=== PATIENT | female | born 1980 | race Hispanic/Latino ===

== ENCOUNTER 2017-08-08 21:16 | Emergency (ER) | payer BC ==
[2017-08-08 21:24] VITALS: BMI 22.3
[2017-08-08 21:32] VITALS: RESP 17
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
[2017-08-08] MEDS ORDERED: Oxycodone/Acetaminophen 5/325 mg Tab PO STA (22:37)
[2017-08-09 01:38] VITALS: O2SAT 98
[2017-08-09 02:19] VITALS: BP 115/72; PULSE 72; TEMP 98.2
--- NOTE | 2017-08-09 08:19 | CT ---
PROCEDURE: HISTORY: pain COMPARISON: none TECHNIQUE: FINDINGS: No fracture dislocation. No soft tissue mass. No effusion. IMPRESSION: Normal exam.
--- NOTE | 2017-08-09 08:25 | CT ---
PROCEDURE: CT of the Left Hip. HISTORY: pain COMPARISON: None available. TECHNIQUE: Contiguous axial images of the left hip were obtained. Coronal and sagittal reformats were generated. This CT exam was performed using one or more of the following dose reduction techniques: Automated exposure control, adjustment of the mA and/or kV according to patient size, and/or use of iterative reconstruction technique. FINDINGS: BONES: Unremarkable. No fracture or focal lesion. Femoral head maintains normal contour. LEFT HIP JOINT: Unremarkable. No dislocation. No degenerative changes. SOFT TISSUES: Unremarkable. IMPRESSION: Unremarkable CT of the left hip.
--- NOTE | 2017-08-09 08:58 | RAD ---
PROCEDURE: Left Ankle Radiographs. HISTORY: pain COMPARISON: None FINDINGS: BONES: No acute fracture or destructive bony lesion identified. JOINTS: Normal. No osteoarthritis. Ankle mortise maintained. Talar dome intact SOFT TISSUES: Normal. OTHER FINDINGS: None. IMPRESSION: Unremarkable left ankle radiographs.
--- NOTE | 2017-08-09 09:00 | RAD ---
PROCEDURE: Radiographs of the Lumbar Spine. HISTORY: pain COMPARISON: No prior. FINDINGS: BONES: Normal alignment. No listhesis. No fracture. DISC SPACES: Unremarkable. OTHER FINDINGS: None. IMPRESSION: Unremarkable radiographs of the lumbar spine.
--- NOTE | 2017-08-09 09:00 | RAD ---
PROCEDURE: Left Knee Radiographs. HISTORY: Pain. COMPARISON: None. FINDINGS: BONES: No acute fracture or destructive bony lesion identified. JOINTS: Normal. No osteoarthritis. JOINT EFFUSION: None. OTHER FINDINGS: None. IMPRESSION: Normal radiographs of the left knee.
--- NOTE | 2017-08-09 09:00 | RAD ---
PROCEDURE: LEFT HIP WITH PELVIS RADIOGRAPHS HISTORY: pain COMPARISON: None available TECHNIQUE: Frontal views of the pelvis and left hip joint of been submitted for interpretation as well as left frog-leg lateral projection. FINDINGS: No acute fractures or dislocation is seen involving the left hip joint with the pelvic ring intact throughout. Pubic symphysis appears intact as well as bilateral sacroiliac joints. Soft tissue calcifications at the inferior pelvis suggests likely phleboliths. Sacrum is unremarkable. Visualized large-bowel loops reflect moderate fecal loading. IMPRESSION: No acute fracture or dislocation left hip joint with the pelvic ring intact and unremarkable appearing.
== END 2017-08-09 02:19 | disposition home or self-care (01) ==
LOC: ED 21:16
DX: M25.562 Pain in left knee (principal); M25.552 Pain in left hip
CPT/HCPCS: 72100; 73502; 73560; 73610; 73700; 96372; 99284; J1885